=== PATIENT | female | born 1995 | race Caucasian/White ===

== ENCOUNTER 2020-03-14 09:32 | Outpatient (CLI) | payer OTHER ==
[2020-03-14] MEDS ORDERED: ACETAMINOPHEN 325 MG TABLET ONE (10:04)
[2020-03-14] MEDS ORDERED: ACETAMINOPHEN 325 MG TABLET PO PRN (10:04)
[2020-03-14 10:16] LABS: ABSOLUTE EOSINOPHILS # (AUTO) 0.1 10^3/uL (0.0-0.6); ABSOLUTE LYMPHOCYTES (AUTO) 1.4 10^3/uL (0.5-4.7); ABSOLUTE MONOCYTES (AUTO) 0.6 10^3/uL (0.1-1.4); ABSOLUTE NEUT (AUTO) 5.4 10^3/uL (1.7-8.2); BASOPHILS % (AUTO) 0.1 % (0-2); HEMATOCRIT 29.2 % (36.0-47.0); HEMOGLOBIN 10.4 g/dL (12.0-15.5); LYMPHOCYTES % (AUTO) 18.4 % (13-45); MEAN CORPUSCULAR HEMOGLOBIN 31.2 pg (27.0-33.4); MEAN CORPUSCULAR HGB CONC 35.5 g/dL (32.0-36.0); MEAN CORPUSCULAR VOLUME 88 fl (80-97); MONOCYTES % (AUTO) 7.9 % (3-13); PLATELET COUNT 163 10^3/uL (150-450); RED BLOOD COUNT 3.32 10^6/uL (3.72-5.28); RED CELL DISTRIBUTION WIDTH 14.7 % (11.5-14.0); SEGMENTED NEUTROPHILS % (AUTO) 71.6 % (42-78); TOTAL CELLS COUNTED % (AUTO) 100 %; WHITE BLOOD COUNT 7.6 10^3/uL (4.0-10.5)
[2020-03-14 10:17] LABS: APPEARANCE,URINE SLIGHTLY-CLOUDY; BILIRUBIN,URINE NEGATIVE (NEGATIVE); COLOR,URINE YELLOW; GLUCOSE, URINE NEGATIVE (NEGATIVE); KETONES,URINE NEGATIVE (NEGATIVE); LEUKOCYTE ESTERASE,URINE TRACE (NEGATIVE); NITRITE,URINE NEGATIVE (NEGATIVE); PROTEIN,URINE NEGATIVE (NEGATIVE); URINE SPECIFIC GRAVITY 1.008
[2020-03-14 10:29] LABS: URINE AMPHETAMINES SCREEN NEGATIVE; URINE BARBITURATES SCREEN NEGATIVE; URINE BENZODIAZEPINES SCREEN NEGATIVE; URINE COCAINE SCREEN NEGATIVE; URINE MARIJUANA (THC) SCREEN NEGATIVE; URINE METHADONE SCREEN NEGATIVE; URINE PHENCYCLIDINE SCREEN NEGATIVE
[2020-03-14 10:36] LABS: ALBUMIN 3.1 g/dL (3.5-5.0); ALKALINE PHOSPHATASE 75 U/L (38-126); ANION GAP 5 (5-19); ASPARTATE AMINO TRANSFERASE 21 U/L (14-36); BILIRUBIN,DIRECT 0.3 mg/dL (0.0-0.4); BILIRUBIN,TOTAL 0.8 mg/dL (0.2-1.3); BLOOD UREA NITROGEN 4 mg/dL (7-20); CALCIUM 8.9 mg/dL (8.4-10.2); CARBON DIOXIDE 26 mmol/L (22-30); CHLORIDE 105 mmol/L (98-107); GLUCOSE 93 mg/dL (75-110); POTASSIUM 3.3 mmol/L (3.6-5.0); TOTAL PROTEIN 5.7 g/dL (6.3-8.2); URIC ACID 4.3 mg/dL (2.5-6.2)
[2020-03-14 10:37] LABS: UR PRO/CREAT RATIO RESULT 0.3 mg/mg (0.0-0.2); URINE CREATININE 66.2 mg/dL (16-327); URINE PROTEIN 17.1 mg/dL (<12)
== END 2020-03-14 10:59 | disposition home or self-care (01) ==
LOC: LC 09:32
PROVIDERS: ATTEND Obstetrics & Gynecology
DX: Z36.89 Encounter for other specified antenatal screening (principal); Z3A.29 29 weeks gestation of pregnancy; Z88.0 Allergy status to penicillin; Z87.891 Personal history of nicotine dependence
CPT/HCPCS: 36415; 80053; 80307; 81001; 82570; 83615; 84156; 84550; 85025; 87086

== ENCOUNTER 2020-04-04 09:37 | Outpatient (CLI) | payer OTHER ==
--- NOTE | 2020-04-04 12:14 | Non Stress Test Report ---
Non Stress Test Datetime Report Generated by CPN: 04/04/2020 12:14 DEMOGRAPHIC Test Number: 1 EGA NST: 32.0 INDICATION Indication for Study (NST) Other: repeat; nonreactive in office VITAL SIGNS Temperature - NST: 98.2 Pulse - NST: 89 RESP - NST: 16 NBPSYS NST: 136 NBPDIA NST: 70 MONITORING Monitor Explained: Monitor Explained; Test Explained; Patient Verbalized Understanding Time on Monitor: 04/04/2020 09:57 Time off Monitor: 04/04/2020 11:26 NST Duration: 89 NST INTERVENTIONS NST Interventions: PO Hydration Physician Notified NST: Dr. Roman BABY A: [id number] BABY A Movement : Present (Annotations: Data stored by [facility] on behalf of user) Contraction Frequency : irregular FHR Baseline : 145 Accelerations : 15X15 Decelerations : None Variability : Moderate 6-25bpm NST Review: Meets Criteria for Reactive NST NST Review and Verified By : Siri Roach RN NST Results: Reactive BABY B Movement: Present FHR Baseline: 145 Accelerations: 15X15 Decelerations: None Variability: Moderate 6-25bpm NST Review: Meets Criteria for Reactive NST NST Results: Reactive NST REPORT Report Trigger: Send Report
== END 2020-04-04 11:43 | disposition home or self-care (01) ==
LOC: LC 09:37
PROVIDERS: ATTEND Obstetrics & Gynecology Gynecology
DX: O30.003 Twin pregnancy, unspecified number of placenta and unspecified number of amniotic sacs, third trimester (principal); Z3A.32 32 weeks gestation of pregnancy

== ENCOUNTER 2020-05-02 09:37 | Inpatient (IN) | payer OTHER ==
[2020-05-02 11:14] LABS: ABSOLUTE EOSINOPHILS # (AUTO) 0.1 10^3/uL (0.0-0.6); ABSOLUTE MONOCYTES (AUTO) 0.4 10^3/uL (0.1-1.4); ABSOLUTE NEUT (AUTO) 5.4 10^3/uL (1.7-8.2); BASOPHILS % (AUTO) 0.2 % (0-2); EOSINOPHILS % (AUTO) 0.9 % (0-6); HEMATOCRIT 31.8 % (36.0-47.0); HEMOGLOBIN 11.3 g/dL (12.0-15.5); LYMPHOCYTES % (AUTO) 14.7 % (13-45); MEAN CORPUSCULAR HEMOGLOBIN 30.8 pg (27.0-33.4); MEAN CORPUSCULAR HGB CONC 35.6 g/dL (32.0-36.0); MEAN CORPUSCULAR VOLUME 87 fl (80-97); MONOCYTES % (AUTO) 6.2 % (3-13); PLATELET COUNT 149 10^3/uL (150-450); RED BLOOD COUNT 3.67 10^6/uL (3.72-5.28); RED CELL DISTRIBUTION WIDTH 14.1 % (11.5-14.0); TOTAL CELLS COUNTED % (AUTO) 100 %; WHITE BLOOD COUNT 6.9 10^3/uL (4.0-10.5)
[2020-05-02] MEDS ORDERED: BETAMET ACET/BETAMET NA INJ 6 MG/1 ML ONE (11:22)
[2020-05-02] MEDS ORDERED: RINGERS SOLUTION,LACTATED 1,000 ML IV PRN ×2 (11:26→19:00)
[2020-05-02 11:29] LABS: ALKALINE PHOSPHATASE 134 U/L (38-126); ANION GAP 7 (5-19); ASPARTATE AMINO TRANSFERASE 19 U/L (14-36); BLOOD UREA NITROGEN 3 mg/dL (7-20); CALCIUM 9.2 mg/dL (8.4-10.2); CARBON DIOXIDE 26 mmol/L (22-30); CHLORIDE 104 mmol/L (98-107); GLUCOSE 83 mg/dL (75-110); TOTAL PROTEIN 5.6 g/dL (6.3-8.2); URIC ACID 4.6 mg/dL (2.5-6.2)
[2020-05-02] MEDS ORDERED: BETAMET ACET/BETAMET NA INJ 6 MG/1 ML IM ONE ×2 (11:29→11:45)
[2020-05-02 11:32] LABS: POTASSIUM 2.8 mmol/L (3.6-5.0)
[2020-05-02 11:33] LABS: APPEARANCE,URINE SLIGHTLY-CLOUDY; BILIRUBIN,URINE NEGATIVE (NEGATIVE); COLOR,URINE YELLOW; GLUCOSE, URINE NEGATIVE (NEGATIVE); KETONES,URINE NEGATIVE (NEGATIVE); LEUKOCYTE ESTERASE,URINE NEGATIVE (NEGATIVE); NITRITE,URINE NEGATIVE (NEGATIVE); PROTEIN,URINE 30 mg/dL (NEGATIVE); URINE SPECIFIC GRAVITY 1.004; UROBILINOGEN,URINE NEGATIVE mg/dL (<2.0)
[2020-05-02] MEDS ORDERED: HYDRALAZINE HCL INJ/PF 20 MG/1 ML SDV IV ONE ×2 (11:42→13:33)
[2020-05-02] MEDS ORDERED: HYDRALAZINE HCL INJ/PF 20 MG/1 ML SDV ONE (11:47)
[2020-05-02 11:49] LABS: URINE AMPHETAMINES SCREEN NEGATIVE; URINE BARBITURATES SCREEN NEGATIVE; URINE BENZODIAZEPINES SCREEN NEGATIVE; URINE COCAINE SCREEN NEGATIVE; URINE MARIJUANA (THC) SCREEN NEGATIVE; URINE METHADONE SCREEN NEGATIVE; URINE PHENCYCLIDINE SCREEN NEGATIVE
--- NOTE | 2020-05-02 11:57 | Admission Physical ---
Datetime Report Generated by CPN: 05/02/2020 11:57 CURRENT ADMISSION Chief Complaint: Sent from OB Office for Evaluation and Treatment - Please Specify Chief Complaint Other: Pre Eclampsia with 24 hour protein >400. Severe range pressures today and sent from office. Di/Di twin gestation. Was scheduled for c/section next week at 37 wks. Indication for Induction: Not Applicable Admit Impression : , Intrauterine Admit Plan: Admit to Unit; Observation/Evaluation ALLERGIES Medication Allergies: No Medication Allergies: Penicillins/SV/Hives (05/02/2020) Latex: No Latex Allergies OBSTETRICAL HISTORY EDC: 05/30/2020 00:00 : 2 Para: 0 Term: 0 : 0 SAB: 1 IAB: 0 Ectopic: 0 Livin Cesareans: 0 VBACs: 0 Multiple Births: 0 Gestational Diabetes: No Rh Sensitization: No Incompetent Cervix: No ADARSH: No Infertility: No ART Treatment: No Uterine Anomaly: No IUGR: No Hx Previous C/S: No Macrosomia: No Hx Loss/Stillborn: No PIH: Yes Hx : No Placenta Previa/Abruption: No Depression/PP Depression: Yes PTL/PROM: No Post Hemorrhage: No Current Procedures: Ultrasound Obstetrical History Comments: G1: SAB G2: di/di twins- Current SEE RECORDS Alcohol: No Marijuana : No Cocaine: No Other Illicit Drugs: No Cigarettes: Former Smoker. [id number] Cigarette Comments: smoked 5-10 years ago MEDICAL HISTORY Diabetes: No Blood Transfusion: No Pulmonary Disease (Asthma, TB): No Breast Disease: No Hypertension: Yes [place] Surgery: No Heart Disease: No Hosp/Surgery: Yes Autoimmune Disorder: No Anesthetic Complications: No Kidney Disease: No Abnormal Pap Smear: No Neuro/Epilepsy: No Psychiatric Disorders: No Other Medical Diseases: No Hepatitis/Liver Disease: No Significant Family History: No Varicosities/Phlebitis: No Trauma/Violence : No Thyroid Dysfunction: No Medical History Comments: hx of eating disorder, PTSD, t_a 2001, INFECTIOUS HISTORY Gonorrhea: No Genital Herpes: No Chlamydia: No Tuberculosis: No Syphilis: No Hepatitis: No HIV/AIDS Exposure: No Rash or Viral Illness: No HPV: No PHYSICAL EXAM General: Normal HEENT: Normal Neurologic: Normal Thyroid: Normal Heart: Normal Lungs: Normal Breast: Normal Back: Normal Abdomen: Normal Genitourinary Exam: Normal Extremities: Normal DTRs: Normal Pelvic Type: Adequate Vital Signs: Reviewed FETUS A EGA: 36.0 Monitoring: External US FHR- Baseline: 150 Variability: Moderate 6-25bpm Accelerations: 15X15 Decelerations: None Estimated Weight (gm): 2600 Presentation: Transverse Admit Comment: d/w pt that her bps are remaining elevated and she may need delivery today or tomorrow. d/w pt and need for ACS to help with FLM and NEC. If bps do not improve will proceed with delivery however, preferable to get ACS full course on board then deliver 24 hours after 2nd dose. FETUS B Monitoring: External US Variability: Moderate 6-25bpm Accelerations: 15X15 Decelerations: None FHR Category: Category I Estimated Weight (gm): 3200 Presentation: Breech PLANS FOR LABOR AND DELIVERY Labor and Delivery: None Pain Management: Spinal Feeding Preference: Breast Benefit of Breast Feed Discussed: Yes Circumcision: Yes INFORMED CONSENT Signature: with User ID: Tommy
[2020-05-02] MEDS ORDERED: POTASSI CL 20 MEQ/50 ML RIDER 20 MEQ/50 ML RTUPB IV ONE (12:00)
[2020-05-02] MEDS ORDERED: MAGNESIUM SULFATE 20 GM/500 ML RTUINJ IV ONE (15:26)
[2020-05-02] MEDS ORDERED: MAGNESIUM SULFATE 4 GM/100 ML RTUPB IV ONE ×2 (15:26→15:32)
[2020-05-02] MEDS: MAGNESIUM SULFATE 20 GM/500 ML RTUINJ IV PRN (16:03)
[2020-05-02] MEDS ORDERED: CITRIC ACID/SODIUM CITRATE ORAL SOLN 15 ML UDCUP ONE (16:50)
[2020-05-02] MEDS ORDERED: CEFAZOLIN 2 GM/D5W RTU 2 GM/50 ML RTUPB IV ONE (16:50)
[2020-05-02] MEDS ORDERED: FENTANYL CITRATE INJ/PF 100 MCG/2 ML AMPUL ONE (17:10)
[2020-05-02] MEDS ORDERED: OXYTOCIN/0.9 % SODIUM CHLORIDE 30 UNIT/500 ML RTUINJ ONE (17:10)
[2020-05-02] MEDS ORDERED: OXYTOCIN 10 UNIT/ML VIAL ONE (17:10)
[2020-05-02] MEDS ORDERED: KETOROLAC TROMETHAMINE INJ/PF 30 MG/1 ML SDV ONE (17:10)
[2020-05-02] MEDS ORDERED: MIDAZOLAM 2 MG/2 ML INJ ONE (17:10)
[2020-05-02] MEDS ORDERED: ACETAMINOPHEN 1,000 MG/100 ML RTUPB IV ONE (17:11)
[2020-05-02] MEDS ORDERED: ONDANSETRON HCL INJ/PF 4 MG/2 ML SDV ONE (17:11)
[2020-05-02] MEDS ORDERED: ACETAMINOPHEN 1,000 MG/100 ML RTUPB IV PRN (19:00)
[2020-05-02] MEDS ORDERED: PROMETHAZINE HCL INJ 25 MG/1 ML VIAL IV PRN (19:00)
[2020-05-02] MEDS ORDERED: MORPHINE SULFATE 10 MG/ML INJ IV PRN (19:00)
[2020-05-02] MEDS ORDERED: ACETAMINOPHEN 325 MG TABLET PO PRN (19:00)
[2020-05-02] MEDS ORDERED: OXYTOCIN/0.9 % SODIUM CHLORIDE 30 UNIT/500 ML RTUINJ IV PRN (19:00)
[2020-05-02] MEDS ORDERED: DIPH/PERTUSS(ACELL)/TETANUS VAC/PF 0.5 ML SYR (>=10YO) IM PRN (19:00)
[2020-05-02] MEDS ORDERED: MEASLES,MUMPS&RUBELLA VACC/PF 0.5 ML VIAL SUBCUT PRN (19:00)
--- NOTE | 2020-05-02 19:10 | Operative Report ---
Operative Report DATE OF SURGERY: 05/02/20 PREOPERATIVE DIAGNOSIS: IUP at 36 weeks and 0 days, di-ditwins, preeclampsia wi th severe features POSTOPERATIVE DIAGNOSIS: Same OPERATION: Primary low transverse hysterotomy section SURGEON: ARABELLA GARCÍA ANESTHESIA: Spinal COMPLICATIONS: None ESTIMATED BLOOD LOSS: 800 cc INTRAOPERATIVE FINDINGS: Baby A male in transverse presentation, Apgars 8 9. Baby B was a female in anne breech presentation with Apgars of 8 and 9 PROCEDURE: PROCEDURE IN DETAIL: The patient was taken to the operating room, prepared and draped in a normal sterile fashion in a supine position with a leftward tilt. A transverse skin incision was made with a scalpel and carried through to the underlying layer of fascia with the same scalpel. The fascia was excised in the midline and extended laterally with Lynn. The fascia was then dissected from the rectus muscle sharply with Lynn and the rectus muscle was divided and the peritoneal cavity was entered sharply with the same Metzenbaum. With good visualization of the bladder and the uterus the bladder blade was inserted. The hysterotomy was nicked with a scalpel and extended laterally with surgeon finger fraction. Baby A was then converted from transverse to a breech presentation and was then delivered atraumatically using normal breech maneuvers. The nose and mouth were suctioned with a suction bulb, the cord was clamped and cut and handed off to awaiting pediatricians. Cord blood was collected. The placenta was removed manually. Amniotomy was then performed on baby B and she was delivered using normal breech maneuvers. Heart was clamped and cut and handed off to awaiting pediatricians. Cord blood was collected . And baby B's placenta was then delivered. the uterus was exteriorized and cleared of clots and debris. The hysterotomy was closed with 0 Monocryl in a running, locked fashion. A second layer of the same suture was used to imbricate to ensure hemostasis. The uterus was returned to the abdomen and peritoneal cavity was cleared of clots and debris. The rectus muscle and peritoneum were repaired with mattress stitch of 2-0 Chromic. The fascia was closed with 0-Vicryl. The subcutaneous layer was closed with plain catgut and the skin was closed with 4-0 Vicryl. The patient tolerated the procedure well. Sponge, lap, and needle counts correct x2 and the patient was taken to recovery in stable condition.
--- NOTE | 2020-05-02 19:51 | Delivery Summary ---
Del Sum A-C Datetime Report Generated by CPN: 05/02/2020 19:51 DELIVERY PERSONNEL DELIVERY PERSONNEL: [id number] Delivery Doctor:: Laura Mosher MD HOUSE BUILDER:: Nate Wynne HOUSE BUILDER Labor and Delivery Nurse:: Felicia Roach RN Fishing Lure Assembler:: Felicia Roach RN Neonatal Nurse Practitioner:: JIGAR Galan Nursery Nurse:: Viri Allen RN Nursery Nurse:: Quiana Saucedo RN Occupational Hygienist/GASKET SUPERVISOR: Vicki Larios HEAVY EQUIPMENT PLUMBING SUPERVISOR Occupational Hygienist/GASKET SUPERVISOR: Shelia Treviño HEAVY EQUIPMENT PLUMBING SUPERVISOR MATERNAL INFORMATION Delivery Anesthesia: Spinal Medications After Delivery: Pitocin 30 Units in 500ml NS/D5W; Pitocin Drip 20 Units/1000ml NSS Delivery QBL: 1196 Maternal Complications: Other Complication Details: Pre-eclampsia LABOR SUMMARY EDC: 05/30/2020 00:00 No. Babies in Womb: 2 Attempted: No Labor Anesthesia: None LABOR INFORMATION Reason for Induction: Not Applicable Oxytocin: N/A Group B Beta Strep: unknown Antibiotics # of Doses: 1 Antibiotics Time of Last Dose: 05/02/2020 18:22 Name of Antibiotic Given: Ancef 2 gm Steroids Given: Partial Course; < 24 Hours before Delivery Reason Steroids Not Administered: Not Applicable MEMBRANES Membranes Rupture Method: Artificial Rupture of Membranes: 05/02/2020 18:24 Length of Rupture (hr): 0.02 Amniotic Fluid Color: Clear Amniotic Fluid Amount: Moderate Amniotic Fluid Odor: Normal STAGES OF LABOR Stage 3 hr: 0 Stage 3 min: 1 VAGINAL DELIVERY Episiotomy: None Laceration #1: None Laceration Extension #1: N/A Laceration Repair: Not Applicable Sponge Count Correct: N/A Sharps Count Correct: N/A CSECTION DELIVERY Primary Indication: Severe PIH, Unfavorable Cervix Other Primary Indication: Pre-eclampsia CSection Urgency: Non-Scheduled CSection Incidence: Primary Labor: No Labor Elective: Nonelective CSection Incision: Lower Uterine Transverse BABY A INFORMATION Infant Delivery Date/Time: 05/02/2020 18:25 Method of Delivery: Nurse Controlled Delivery: No Born in Route : No : N/A Forceps: N/A Vacuum Extraction: N/A Shoulder Dystocia : No PRESENTATION/POSITION BABY A Presentation: Breech Cephalic Presentation: N/A Breech Presentation: Kishan PLACENTA INFORMATION BABY A Placenta Delivery Time : 05/02/2020 18:26 Placenta Method of Delivery: Manual Removal Placenta Status: Delivered SCORES BABY A Heart Rate 1 min: >100 bpm Resp Effort 1 min: Good Cry Reflex Irritability 1 min: Cough or Sneeze or Pulls Away Muscle Tone 1 min: Active Motion Color 1 min: Blue/Pale SCORE 1 MIN: 8 Heart Rate 5 min: >100 bpm Resp Effort 5 min: Good Cry Reflex Irritability 5 min: Cough or Sneeze or Pulls Away Muscle Tone 5 min: Active Motion Color 5 min: Body [place], Extremities Blue SCORE 5 MIN: 9 INFORMATION BABY A Gestational Age at Delivery: 36.0 Gestational Status: Late - 34- 36.6 Weeks Outcome : Liveborn Condition : Stable Sex: Male IDENTIFICATION BABY A Verification Date/Time: 05/02/2020 18:33 ID Band Number: [id number] Mother's Name Verified: Yes Infant RN Verifying : Siri Roach, RN Additional Verifying Personnel: Johnny Allen RN WEIGHT/LENGTH BABY A Birthweight (gm): 2805 Weight (lb): 6 Infant Weight (oz): 3 Infant Length (in): 19.50 Infant Length (cm): 49.53 CORD INFORMATION BABY A No. Cord Vessels: 3 Nuchal Cord : N/A Cord Blood Taken: Yes-For Storage (Mom's Blood type +) Infant Suction: Mouth; Nose BABY B INFORMATION Delivery Date/Time: 05/02/2020 18:26 Method of Delivery : Nurse Controlled Delivery: No Born in Route : No : N/A Forceps : N/A Vacuum Extraction: N/A Shoulder Dystocia : No SHOULDER DYSTOCIA BABY B Delivery Date/Time: 05/02/2020 18:26 PRESENTATION/POSITION BABY B Presentation : Breech Cephalic Position : N/A Breech Position: Kishan ROM/PLACENTA INFO BABY B Rupture of Membranes: 05/02/2020 18:25 Length of Rupture (hr): 0.02 Placenta Delivery Time : 05/02/2020 18:27 Placenta Method of Delivery: Manual Removal Placental Status : Delivered SCORES BABY B Heart Rate 1 min: >100 bpm Resp Effort 1 min: Good Cry Reflex Irritability 1 min: Cough or Sneeze or Pulls Away Muscle Tone 1 min: Active Motion Color 1 min: Blue/Pale Resuscitation Effort 1 min: Tactile Stimulation; PPV/NCPAP SCORE 1 MIN: 8 Heart Rate 5 min: >100 bpm Resp Effort 5 min: Good Cry Reflex Irritability 5 min: Cough or Sneeze or Pulls Away Muscle Tone 5 min: Active Motion Color 5 min: Blue/Pale Resuscitation Effort 5 min: N/A SCORE 5 MIN: 8 INFORMATION BABY B Gestational Age at Delivery: 36.0 Gestational Status : Late - 34- 36.6 Weeks Infant Outcome : Liveborn Infant Condition : Stable Infant Sex : Female WEIGHT/LENGTH BABY B Infant Birthweight (gm): 2395 Weight (lb) : 5 Weight (oz): 4 Length (in): 18.50 Length (cm): 46.99 CORD INFORMATION BABY B No. Cord Vessels : 3 Nuchal Cord : N/A Cord Blood Taken : Yes-For Storage (Mom's Blood Type +) Infant Suction : Mouth; Nose
--- NOTE | 2020-05-02 19:51 | Birth Certificate Data ---
Cert Data Datetime Report Generated by CPN: 05/02/2020 19:51 CERTIFICATE DATA Delivery Provider: Laura Mosher MD (05/02/2020 19:00:Felicia Roach RN) 47a. Care: Yes (03/14/2020 09:34:Allison Gaspar RN) 47b. Date of First Visit: 11/16/2019 00:00 (03/14/2020 09:34:Allison Gapsar RN) 47c. Date of Last Visit: 05/02/2020 00:00 (03/14/2020 09:34:Kaitlin Rocha RN) 47d. Number of Visits: 13 (03/14/2020 09:34:Kaitlin Rocha RN) 48a. Number of Prev Live Births: 0 (03/14/2020 09:34:Kaitlin Rocha RN) 48b. Now Livin (03/14/2020 09:34:Kaitlin Rocha RN) 48c. Live Births Now : 0 (03/14/2020 09:34:QS system process) 48e. Losses: 1 (03/14/2020 09:34:Kaitlin Rocha RN) 48f. Date of Last Preg Loss: 10/12/2018 00:00 (03/14/2020 09:34:Kaitlin Rocha RN) RISK FACTORS IN THIS 49a. Diabetes: No (03/14/2020 09:34:Kaitlin Rocha RN) 49b. Hypertension: Yes (03/14/2020 09:34:Kaitlin Rocha RN) Type of Hypertension: Gestational (PIH, Pre-eclampsia) (03/14/2020 09:34:Kaitlin Rocha RN) 49c. Previous Births: 0 (03/14/2020 09:34:Allison Gaspar RN) 49d. Stillborns: No (03/14/2020 09:34:Kaitlin Rocha RN) 49d. IUGR: No (03/14/2020 09:34:Kaitlin Rocha RN) 49e. Infertility Treatment: No (03/14/2020 09:34:Kaitlin Rocha RN) 49f. Previous Cesareans: 0 (03/14/2020 09:34:Allison Gaspar RN) Mother's Height 50b. Height Inches: 66 (05/02/2020 11:38:QS system process) Mother's Weight 51a. Pre- Weight (lbs): 229 (03/14/2020 09:34:Allison Gaspar RN) 51b. Weight at Delivery (lbs): 275 (05/02/2020 11:38:QS system process) 52. Dt Last Normal Menses Began: 08/24/2019 00:00 (03/14/2020 09:34:Allison Gaspar RN) Infections Present/Treated 53a. Gonorrhea: No (03/14/2020 09:34:Kaitlin Rocha RN) Results this Hospital Visit : Negative (03/14/2020 09:34:Allison Gaspar RN) 53b. Syphilis: No (03/14/2020 09:34:Kaitlin Rocha RN) 53c. Chlamydia: No (03/14/2020 09:34:Kaitlin Rocha RN) Results this Hospital Visit: Negative (03/14/2020 09:34:Allison Gaspar RN) 53d. Hepatitis B: No (03/14/2020 09:34:Kaitlin Rocha RN) Results this Hospital Visit: Negative (03/14/2020 09:34:Allison Gaspar RN) 53e. Hepatitis C: Negative (03/14/2020 09:34:Kaitlin Rocha RN) 53h. Mother Tested for HBsAG: Yes (03/14/2020 09:34:Allison Gaspar RN) 53i. Date Tested: 11/16/2019 00:00 (03/14/2020 09:34:Allison Gaspar RN) 53j. Test Result: Negative (03/14/2020 09:34:Allison Gaspar RN) Obstetric Procedures 54a, b, c. Obstetric Procedures: Ultrasound (03/14/2020 09:34:Kaitlin Rocha RN) Cigarette Smoking Cigarette Smoking: Former Smoker. [id number] (03/14/2020 09:34:Allison Gaspar RN) 55a. 3 Months Before Preg - Ci (03/14/2020 09:34:Allison Gaspar RN) 55b. 1st Trimester of Preg- Ci (03/14/2020 09:34:Allison Gaspar RN) 55c. 2nd Trimester of Preg- Ci (03/14/2020 09:34:Allison Gaspar RN) 55d. 3rd Trimester of Preg- Ci (03/14/2020 09:34:Allison Gaspar RN) Onset of Labor 56a. PROM >12 Hrs: 0.02 (03/14/2020 09:34:QS system process) 57a. Induction of Labor: N/A (03/14/2020 09:34:Michelle Concepcion RN) 57c. Non-Vertex Presentation A: N/A (03/14/2020 09:34:Felicia Roach RN) 57c. Non-Vertex Presentation B: N/A (03/14/2020 09:34:Felicia Roach RN) 57d. Steroids - Lung Mat: Partial Course; < 24 Hours before Delivery (03/14/2020 09:34:Michelle Concepcion RN) 57d. Steroids - Lung Mat: Celestone 12mg IM - Dose 1 (05/02/2020 11:25:Kaitlin Rocha RN) 57d. Steroids - Lung Mat: Not Applicable (03/14/2020 09:34:Michelle Concepcion RN) 57e. Antibiotics During Labor: 05/02/2020 18:22 (03/14/2020 09:34:Michelle Concepcion RN) 57f. Mat [place] or Temp >100.4: 98.8 (03/14/2020 09:34:Felicia Roach RN) 57g. Moderate/Heavy Meconium: Clear (03/14/2020 09:34:Felicia Roach RN) 57h. Intolerance of Labor: Severe PIH, Unfavorable Cervix (03/14/2020 09:34:Felicia Roach RN) : Pre-eclampsia (03/14/2020 09:34:Felicia Roach RN) 57i. Epidural/Spinal Anesthesia: None (03/14/2020 09:34:Michelle Concepcion RN) Method of Delivery 58a. Forceps - Unsuccessful A: N/A (03/14/2020 09:34:Kaitlin Rocha RN) 58a. Forceps - Unsuccessful B: N/A (03/14/2020 09:34:Kaitlin Rocha RN) 58b. Vacuum - Unsuccessful A: N/A (03/14/2020 09:34:Kaitlin Rocha RN) 58b. Vacuum - Unsuccessful B : N/A (03/14/2020 09:34:Kaitlin Rocha RN) 58c. Presentation at 58c. Presentation at - A : N/A (03/14/2020 09:34:Felicia Roach RN) 58c. Presentation at - A : Kishan (03/14/2020 09:34:Felicia Roach RN) 58c. Presentation at - A : Breech (03/14/2020 09:34:Viri Allen RN) 58c. Presentation at - B: N/A (03/14/2020 09:34:Felicia Roach RN) 58c. Presentation at - B : Kishan (03/14/2020 09:34:Felicia Roach RN) 58c. Presentation at - B: Breech (03/14/2020 09:34:Felicia Roach RN) Final Route and Method of Del 58d. Baby A Route/Delivery: (03/14/2020 09:34:Kaitlin Rocha RN) 58d. Baby B Route/Delivery: (03/14/2020 09:34:Kaitlin Rocha RN) 58e. Trial of Labor Attempted: No (03/14/2020 09:34:Michelle Concepcion RN) 58e. Trial of Labor Attempted A: N/A (03/14/2020 09:34:Kaitlin Rocha RN) 58e. Trial of Labor Attempted B: N/A (03/14/2020 09:34:Kaitlin Rocha RN) Maternal Morbidity 59b. 3rd or 4th Degree Lacs: None (03/14/2020 09:34:Michelle Concepcion RN) Birthweight Baby A: 2805 (03/14/2020 09:34:Kaitlin Rocha RN) 60a. Pounds : 6 (03/14/2020 09:34:QS system process) 60b. Ounces: 3 (03/14/2020 09:34:QS system process) Birthweight Baby B 60a. Pounds: 5 (03/14/2020 09:34:QS system process) 60b. Ounces: 4 (03/14/2020 09:34:QS system process) 61. GA at Delivery Baby A: 36.0 (03/14/2020 09:34:Kaitlin Rocha RN) : Late - 34- 36.6 Weeks (03/14/2020 09:34:QS system process) Baby B: 36.0 (03/14/2020 09:34:Kaitlin Rocha RN) : Late - 34- 36.6 Weeks (03/14/2020 09:34:QS system process) 62a. 5 Minute Baby A: 9 (03/14/2020 09:34:QS system process) Baby B: 8 (03/14/2020 09:34:QS system process)
[2020-05-02] MEDS ORDERED: MORPHINE SULFATE 10 MG/ML INJ ONE (19:52)
[2020-05-02] MEDS: KETOROLAC TROMETHAMINE INJ/PF 30 MG/1 ML SDV IV SCH (21:09)
--- NOTE | 2020-05-02 21:35 | Warning Signs in Babies ---
VOD Warning Signs Datetime Report Generated by [facility]: 05/02/2020 21:34 VOD#608 -Warning Signs in Babies: Viewed with Parent(s)/Family (03/14/2020 09:34:Luis Duff RN)
[2020-05-02] MEDS ORDERED: MISOPROSTOL 0.2 MG TABLET ONE (22:06)
[2020-05-02 22:53] LABS: ABSOLUTE LYMPHOCYTES (AUTO) 1.1 10^3/uL (0.5-4.7); ABSOLUTE MONOCYTES (AUTO) 0.8 10^3/uL (0.1-1.4); ABSOLUTE NEUT (AUTO) 12.1 10^3/uL (1.7-8.2); BASOPHILS % (AUTO) 0.2 % (0-2); HEMATOCRIT 27.8 % (36.0-47.0); HEMOGLOBIN 10.1 g/dL (12.0-15.5); LYMPHOCYTES % (AUTO) 7.7 % (13-45); MEAN CORPUSCULAR HEMOGLOBIN 31.2 pg (27.0-33.4); MEAN CORPUSCULAR HGB CONC 36.2 g/dL (32.0-36.0); MEAN CORPUSCULAR VOLUME 86 fl (80-97); MONOCYTES % (AUTO) 5.8 % (3-13); PLATELET COUNT 210 10^3/uL (150-450); RED BLOOD COUNT 3.22 10^6/uL (3.72-5.28); RED CELL DISTRIBUTION WIDTH 14.3 % (11.5-14.0); SEGMENTED NEUTROPHILS % (AUTO) 86.3 % (42-78); TOTAL CELLS COUNTED % (AUTO) 100 %
[2020-05-02 23:02] LABS: INTERNATIONAL RATION (INR) 1.02; PARTIAL THROMBOPLASTIN TIME 27.7 SEC (23.5-35.8); PROTHROMBIN TIME 13.6 SEC (11.4-15.4)
[2020-05-03] MEDS ORDERED: OXYCODONE-ACETAMINOPHEN 5-325 MG TABLET ONE ×2 (00:08→07:41)
[2020-05-03] MEDS: OXYCODONE-ACETAMINOPHEN 5-325 MG TABLET PO PRN ×4 (00:11→19:40)
[2020-05-03 01:05] LABS: HEMATOCRIT 24.3 % (36.0-47.0); HEMOGLOBIN 8.5 g/dL (12.0-15.5); MEAN CORPUSCULAR HEMOGLOBIN 30.5 pg (27.0-33.4); MEAN CORPUSCULAR HGB CONC 34.9 g/dL (32.0-36.0); MEAN CORPUSCULAR VOLUME 88 fl (80-97); PLATELET COUNT 139 10^3/uL (150-450); RED BLOOD COUNT 2.78 10^6/uL (3.72-5.28); RED CELL DISTRIBUTION WIDTH 14.1 % (11.5-14.0); WHITE BLOOD COUNT 13.1 10^3/uL (4.0-10.5)
[2020-05-03 01:18] LABS: ALBUMIN 2.4 g/dL (3.5-5.0); ALKALINE PHOSPHATASE 111 U/L (38-126); ANION GAP 9 (5-19); ASPARTATE AMINO TRANSFERASE 24 U/L (14-36); BILIRUBIN,TOTAL 0.9 mg/dL (0.2-1.3); BLOOD UREA NITROGEN 4 mg/dL (7-20); CALCIUM 8.3 mg/dL (8.4-10.2); CARBON DIOXIDE 19 mmol/L (22-30); CHLORIDE 101 mmol/L (98-107); GLUCOSE 137 mg/dL (75-110); TOTAL PROTEIN 4.7 g/dL (6.3-8.2)
[2020-05-03] MEDS ORDERED: MAGNESIUM SULFATE 20 GM/500 ML RTUINJ IV ONE (03:59)
[2020-05-03] MEDS: MAGNESIUM SULFATE 20 GM/500 ML RTUINJ IV PRN (04:01)
[2020-05-03] MEDS ORDERED: KETOROLAC TROMETHAMINE INJ/PF 30 MG/1 ML SDV ONE (05:47)
[2020-05-03] MEDS: KETOROLAC TROMETHAMINE INJ/PF 30 MG/1 ML SDV IV SCH ×2 (05:51→13:57)
[2020-05-03 07:20] LABS: HEMATOCRIT 23.3 % (36.0-47.0); HEMOGLOBIN 8.2 g/dL (12.0-15.5); MEAN CORPUSCULAR HEMOGLOBIN 30.5 pg (27.0-33.4); MEAN CORPUSCULAR HGB CONC 35.2 g/dL (32.0-36.0); MEAN CORPUSCULAR VOLUME 87 fl (80-97); PLATELET COUNT 204 10^3/uL (150-450); RED BLOOD COUNT 2.68 10^6/uL (3.72-5.28); WHITE BLOOD COUNT 12.3 10^3/uL (4.0-10.5)
[2020-05-03] MEDS ORDERED: DOCUSATE SODIUM 100 MG CAPSULE ONE (08:35)
[2020-05-03] MEDS ORDERED: PRENATAL VITAMIN W DHA CAPSULE PO ONE (08:35)
[2020-05-03] MEDS: DOCUSATE SODIUM 100 MG CAPSULE PO SCH ×2 (09:00→17:31)
[2020-05-03] MEDS: PRENATAL VITAMIN W DHA CAPSULE PO SCH (09:00)
[2020-05-03] MEDS: SIMETHICONE 80 MG TAB.CHEW PO PRN ×2 (10:54→19:39)
[2020-05-03] MEDS ORDERED: IBUPROFEN 800 MG TABLET PO SCH (12:00)
[2020-05-03] MEDS: IBUPROFEN 800 MG TABLET PO SCH (22:06)
[2020-05-04] MEDS: OXYCODONE-ACETAMINOPHEN 5-325 MG TABLET PO PRN ×3 (00:39→17:07)
[2020-05-04] MEDS: IBUPROFEN 800 MG TABLET PO SCH ×4 (03:19→20:20)
[2020-05-04] MEDS: PRENATAL VITAMIN W DHA CAPSULE PO SCH (09:45)
[2020-05-04] MEDS: DOCUSATE SODIUM 100 MG CAPSULE PO SCH ×2 (09:47→18:24)
--- NOTE | 2020-05-04 11:46 | PDOC PROGRESS REPORT ---
Subjective-OB Progress Note for:: 05/04/20 Subjective: reports bleeding slowing. has pain at incision site. denies needs today but still working on twins Physical Exam (OB) Vital Signs: Temp Pulse Resp BP Pulse Ox 99.2 F 90 18 143/74 H 98 05/04/20 08:04 05/04/20 07:46 05/04/20 07:46 05/04/20 07:46 05/04/20 07:46 Intake & Output 05/03/20 05/04/20 05/05/20 06:59 06:59 06:59 Intake Total 500 1400 Output Total 2150 Balance 500 -750 Weight 125.2 kg - Dressing Removed: No Incision: Open Closure Type: Surgical Glue - Maternal Morbidity 59. Maternal Morbidity (serious complications experinced by the mother associated with labor and delivery: None of the above - Abdomen Description: Tender, Soft Hernia Present: No Fundal Description: Firm, Midline Fundal Height: u/u - u/2 - Abdominal Distension: No distension - Extremities Lower extremities: Orestes's sign - neg Calf: Normal, Nontender Objective-Diagnostic Laboratory: 05/03/20 07:09 05/03/20 00:54 Assessment and Plan(PN) - Time Spent with Patient Time with patient: Less than 15 minutes Medications reviewed and adjusted accordingly: Yes - Disposition Anticipated Discharge Disposition: Home, Self Care Anticipated Discharge Timeframe: within 24 hours
[2020-05-04] MEDS: SIMETHICONE 80 MG TAB.CHEW PO PRN (20:34)
[2020-05-05] MEDS: IBUPROFEN 800 MG TABLET PO SCH ×3 (02:00→15:33)
--- NOTE | 2020-05-05 09:59 | PDOC DISCHARGE SUMMARY ---
Impression - Admit/DC Date/PCP Admission Date/Primary Care Provider: 05/02/20 11:29 JIMMY SEPULVEDA PA-C Discharge Date: 05/05/20 - Discharge Diagnosis (1) Delivery by section Is this a current diagnosis for this admission?: Yes - Additional Information Resuscitation Status: Full Code Discharge Diet: Regular Discharge Activity: Balance Activity w/Rest, No Lifting Over 10 Pounds, No Lifting/Push/Pulling, Pelvic Rest, No tub bath Referrals: JIMMY SEPULVEDA PA-C [Primary Care Provider] - Prescriptions: Oxycodone HCl/Acetaminophen [Percocet 5-325 mg Tablet] 1 tab PO Q4HP PRN #30 tablet PRN Reason: For Pain Scale 3-5 Ibuprofen [Motrin 800 mg Tablet] 800 mg PO Q8HP PRN #60 tablet PRN Reason: Home Medications: Vitamin [-U Multiple Vitamin Capsule] 1 cap PO NOW 03/14/20 Docusate Sodium [Colace] 100 mg PO DAILY 04/04/20 Ibuprofen [Motrin 800 mg Tablet] 800 mg PO Q8HP PRN #60 tablet 05/05/20 Oxycodone HCl/Acetaminophen [Percocet 5-325 mg Tablet] 1 tab PO Q4HP PRN #30 tablet 05/05/20 HPI Gestational Age: 36 Reason(s) for Admission: Ceasarean Section-Primary, Obstetric Complications, Twins Procedures: NST Intrapartum Procedure(s): : Low Cervical, Transverse Hospital Course 59. Maternal Morbidity (serious complications experinced by the mother associated with labor and delivery: None of the above Results Laboratory Results: WBC 12.3 10^3/uL (4.0-10.5) H 05/03/20 07:09 RBC 2.68 10^6/uL (3.72-5.28) L 05/03/20 07:09 Hgb 8.2 g/dL (12.0-15.5) L 05/03/20 07:09 Hct 23.3 % (36.0-47.0) L 05/03/20 07:09 MCV 87 fl (80-97) 05/03/20 07:09 MCH 30.5 pg (27.0-33.4) 05/03/20 07:09 MCHC 35.2 g/dL (32.0-36.0) 05/03/20 07:09 RDW 14.0 % (11.5-14.0) 05/03/20 07:09 Plt Count 204 10^3/uL (150-450) 05/03/20 07:09 Lymph % (Auto) 7.7 % (13-45) L 05/02/20 22:41 Thayer % (Auto) 5.8 % (3-13) 05/02/20 22:41 Eos % (Auto) 0.0 % (0-6) 05/02/20 22:41 Baso % (Auto) 0.2 % (0-2) 05/02/20 22:41 Absolute Neuts (auto) 12.1 10^3/uL (1.7-8.2) H 05/02/20 22:41 Absolute Lymphs (auto) 1.1 10^3/uL (0.5-4.7) 05/02/20 22:41 Absolute Monos (auto) 0.8 10^3/uL (0.1-1.4) 05/02/20 22:41 Absolute Eos (auto) 0.0 10^3/uL (0.0-0.6) 05/02/20 22:41 Absolute Basos (auto) 0.0 10^3/uL (0.0-0.2) 05/02/20 22:41 Seg Neutrophils % 86.3 % (42-78) H 05/02/20 22:41 PT 13.6 SEC (11.4-15.4) 05/02/20 22:41 INR 1.02 05/02/20 22:41 APTT 27.7 SEC (23.5-35.8) 05/02/20 22:41 Sodium 128.9 mmol/L (137-145) L 05/03/20 00:54 Potassium 3.0 mmol/L (3.6-5.0) L* 05/03/20 00:54 Chloride 101 mmol/L (98-107) 05/03/20 00:54 Carbon Dioxide 19 mmol/L (22-30) L 05/03/20 00:54 Anion Gap 9 (5-19) 05/03/20 00:54 BUN 4 mg/dL (7-20) L 05/03/20 00:54 Creatinine 0.48 mg/dL (0.52-1.25) L 05/03/20 00:54 Est GFR ( Amer) > 60 (>60) 05/03/20 00:54 Est GFR (MDRD) Non-Af > 60 (>60) 05/03/20 00:54 Glucose 137 mg/dL (75-110) H 05/03/20 00:54 Uric Acid 4.6 mg/dL (2.5-6.2) 05/02/20 10:52 Calcium 8.3 mg/dL (8.4-10.2) L 05/03/20 00:54 Total Bilirubin 0.9 mg/dL (0.2-1.3) 05/03/20 00:54 Direct Bilirubin 0.0 mg/dL (0.0-0.4) 05/03/20 00:54 Neonat Total Bilirubin Not Reportable 05/03/20 00:54 Neonat Direct Bilirubin Not Reportable 05/03/20 00:54 Neonat Indirect Bili Not Reportable 05/03/20 00:54 AST 24 U/L (14-36) 05/03/20 00:54 ALT 16 U/L (<35) 05/03/20 00:54 Alkaline Phosphatase 111 U/L (38-126) 05/03/20 00:54 Lactate Dehydrogenase 250 U/L (120-246) H 05/02/20 10:52 Total Protein 4.7 g/dL (6.3-8.2) L 05/03/20 00:54 Albumin 2.4 g/dL (3.5-5.0) L 05/03/20 00:54 Urine Color YELLOW 05/02/20 09:48 Urine Appearance SLIGHTLY-CLOUDY 05/02/20 09:48 Urine pH 8.0 (5.0-9.0) 05/02/20 09:48 Ur Specific [place] 1.004 05/02/20 09:48 Urine Protein 30 mg/dL (NEGATIVE) H 05/02/20 09:48 Urine Glucose (UA) NEGATIVE mg/dL (NEGATIVE) 05/02/20 09:48 Urine Ketones NEGATIVE mg/dL (NEGATIVE) 05/02/20 09:48 Urine Blood SMALL (NEGATIVE) H 05/02/20 09:48 Urine Nitrite NEGATIVE (NEGATIVE) 05/02/20 09:48 Urine Bilirubin NEGATIVE (NEGATIVE) 05/02/20 09:48 Urine Urobilinogen NEGATIVE mg/dL (<2.0) 05/02/20 09:48 Ur Leukocyte Esterase NEGATIVE (NEGATIVE) 05/02/20 09:48 Urine WBC (Auto) 3 /HPF 05/02/20 09:48 Urine RBC (Auto) 1 /HPF 05/02/20 09:48 U Hyaline Cast (Auto) 1 /LPF 05/02/20 09:48 Urine Bacteria (Auto) 1+ /HPF 05/02/20 09:48 Squamous Epi Cells Auto <1 /HPF 05/02/20 09:48 Urine Ascorbic Acid NEGATIVE (NEGATIVE) 05/02/20 09:48 Urine Opiates Screen NEGATIVE 05/02/20 09:48 Urine Methadone Screen NEGATIVE 05/02/20 09:48 Ur Barbiturates Screen NEGATIVE 05/02/20 09:48 Ur Phencyclidine Scrn NEGATIVE 05/02/20 09:48 Ur Amphetamines Screen NEGATIVE 05/02/20 09:48 U Benzodiazepines Scrn NEGATIVE 05/02/20 09:48 Urine Cocaine Screen NEGATIVE 05/02/20 09:48 U Marijuana (THC) Screen NEGATIVE 05/02/20 09:48 RPR NONREACTIVE (NONREACTIVE) 05/02/20 10:52 Blood Type A POSITIVE 05/02/20 10:52 Antibody Screen NEGATIVE 05/02/20 10:52 Plan Plan of Treatment: f/u Friday at [facility] for incision check and BP check Time Spent: Less than 30 Minutes
[2020-05-05] MEDS: DOCUSATE SODIUM 100 MG CAPSULE PO SCH ×2 (10:00→17:36)
[2020-05-05] MEDS: PRENATAL VITAMIN W DHA CAPSULE PO SCH (10:00)
[2020-05-05 15:51] VITALS: BP 133/84
== END 2020-05-05 18:35 | disposition home or self-care (01) | DRG 788 ==
LOC: LC 09:37 → LR 11:29 → 2N 05-03 09:25
PROVIDERS: ADMIT Obstetrics & Gynecology; ATTEND Obstetrics & Gynecology
PROC: 10D00Z1 Extraction of Products of Conception, Low, Open Approach (ICD-10-PCS; principal; 2020-05-02)
DX: O14.14 Severe pre-eclampsia complicating childbirth (principal); Z37.2 Twins, both liveborn; O30.043 Twin pregnancy, dichorionic/diamniotic, third trimester; O32.2XX1 Maternal care for transverse and oblique lie, fetus 1; O32.1XX2 Maternal care for breech presentation, fetus 2; O13.4 Gestational [pregnancy-induced] hypertension without significant proteinuria, complicating childbirth; Z3A.36 36 weeks gestation of pregnancy; Z88.0 Allergy status to penicillin; Z87.891 Personal history of nicotine dependence
CPT/HCPCS: 1961; 36415; 80053; 80307; 81001; 83615; 84550; 85025; 85027; 85610; 85730; 86592; 86850; 86900; 86901; 94760; 94799; 99140; J0131; J0360; J0690; J0702; J1885; J2250; J2270; J2405; J2550; J2590; J3010; J3475; J3480; J3490

== ENCOUNTER 2020-05-07 00:54 | Outpatient (CLI) | payer OTHER ==
[2020-05-07 01:48] LABS: APPEARANCE,URINE CLEAR; BILIRUBIN,URINE NEGATIVE (NEGATIVE); COLOR,URINE STRAW; GLUCOSE, URINE NEGATIVE (NEGATIVE); KETONES,URINE NEGATIVE (NEGATIVE); LEUKOCYTE ESTERASE,URINE TRACE (NEGATIVE); NITRITE,URINE NEGATIVE (NEGATIVE); PROTEIN,URINE NEGATIVE (NEGATIVE); URINE SPECIFIC GRAVITY 1.006; UROBILINOGEN,URINE NEGATIVE mg/dL (<2.0)
[2020-05-07] MEDS ORDERED: FUROSEMIDE 20 MG TABLET PO ONE (01:52)
[2020-05-07 01:59] LABS: URINE AMPHETAMINES SCREEN NEGATIVE; URINE BARBITURATES SCREEN NEGATIVE; URINE BENZODIAZEPINES SCREEN NEGATIVE; URINE COCAINE SCREEN NEGATIVE; URINE MARIJUANA (THC) SCREEN NEGATIVE; URINE METHADONE SCREEN NEGATIVE; URINE PHENCYCLIDINE SCREEN NEGATIVE
== END 2020-05-07 02:34 | disposition home or self-care (01) ==
LOC: LC 00:54
PROVIDERS: ATTEND Obstetrics & Gynecology Gynecology
DX: O16.5 Unspecified maternal hypertension, complicating the puerperium (principal)
CPT/HCPCS: 80307; 81001